=== PATIENT | female | born 1990 | race Caucasian/White ===

== ENCOUNTER 2020-01-11 11:23 | Emergency (ER) | payer BC, SELFPAY ==
--- NOTE | 2020-01-11 11:28 | XRR_ITS ---
PROCEDURE INFORMATION: Exam: XR Chest, 1 View Exam date and time: 01/11/2020 11:51 AM Age: 29 years old Clinical indication: Chest pain TECHNIQUE: Imaging protocol: XR of the chest Views: 1 view. COMPARISON: No relevant prior studies available. FINDINGS: Lungs: Unremarkable. No consolidation. Pleural space: Unremarkable. No pleural effusion. No pneumothorax. Heart/Mediastinum: Unremarkable. No cardiomegaly. Bones/joints: Unremarkable. XR/XR chest 1V portable [id number] IMPRESSION: No acute findings.
--- NOTE | 2020-01-11 11:29 | ECG_ITS ---
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 Measurements Intervals [place] Rate: 129 P: 57 OR: 139 QRS: 12 QRSD: 94 T: 47 QT: 327 QTc: 480 Interpretive Statements SINUS TACHYCARDIA INDETERMINATE AXIS ABNORMAL RHYTHM ECG No previous ECG available for comparison Electronically Signed On 01-11-2020 20:30:02 CDT by Mei Benítez M.D. [id number]
[2020-01-11 11:39] VITALS: BP 146/84; PULSE 115; RESP 16; TEMP 36.8; O2SAT 100; BMI 34.2
[2020-01-11 12:22] LABS: Basophils % 0.2 %; Eosinophils # 0.1 10^3/uL (0.0-0.8); Eosinophils % 0.6 %; Hematocrit 48.8 % (37.0-47.0); Hemoglobin 16.6 g/dL (11.5-15.3); Lymphocytes # 1.7 10^3/uL (0.8-4.8); Lymphocytes % 17.3 %; Mean Corpuscular Hemoglobin 30.6 pg (28.0-34.0); Mean Platelet Volume 9.4 fL (7.4-10.4); Monocytes # 0.6 10^3/uL (0.2-0.9); Monocytes % 6.1 %; Neutrophils # 7.37 10^3/uL (1.8-7.7); Neutrophils % 75.1 %; Nucleated Red Blood Cells % 0 %; Platelet Count 263 10^3/cmm (130-400); Red Blood Count 5.42 10^6/uL (4.1-5.3); Red Cell Distribution Width 11.8 % (12.1-15.1); White Blood Count 9.8 10^3/uL (4.0-10.0)
[2020-01-11 12:38] LABS: INR 0.94 (0.8-1.2)
[2020-01-11 12:40] LABS: HCG, Serum Qual Negative (Negative)
[2020-01-11 12:46] LABS: Alanine Aminotransferase 27 U/L (0-33); Albumin Level 4.9 g/dL (3.5-5.2); Alkaline Phosphatase 87 IU/L (35-105); Anion Gap 17.8 (5-19); Aspartate Amino Transferase 16 U/L (0-32); Blood Urea Nitrogen 11 mg/dL (6-20); Calcium 10.5 mg/dL (8.5-10.5); Carbon Dioxide 22 mmol/L (22-29); Chloride 103 mmol/L (98-107); Creatine Phosphokinase 63 U/L (26-192); Globulin 2.9 g/dL (1.3-4.6); Glucose 142 mg/dL (65-115); Lipase 18 U/L (13-60); Magnesium 2.1 mg/dL (1.7-2.3); Osmolality Calculated 290 mOsm/kg (285-295); Potassium 3.8 mmol/L (3.5-5.1); Sodium 139 mmol/L (136-145); Total Bilirubin 0.3 mg/dL (0.15-1.2); Total Protein 7.8 g/dL (6.6-8.7); Troponin(5th) Baseline 6 ng/L (0-10)
[2020-01-11 13:05] VITALS: BP 138/83; PULSE 97; RESP 18; O2SAT 97
[2020-01-11 13:07] LABS: Add Urine Microscopic? NO
[2020-01-11 13:13] LABS: Bilirubin Urine Neg (Negative); Blood Urine Neg (Negative); Glucose Urine UA Norm (Normal); Ketones Urine Negative (Negative); Leukocyte Esterase Urine Negative (Negative); Nitrate Urine Negative (Negative); Protein Urine Neg (Negative); Specific Gravity, Urine 1.005 (1.005-1.030); Urine Appearance Clear (CLEAR); Urine Color Yellow (Yellow); Urobilinogen Urine Norm (Negative); pH Urine 7 (5-7)
--- NOTE | 2020-01-11 13:15 | ED_ITS ---
HPI - Chest Pain General: Chief Complaint: Chest Pain Stated Complaint: Chest Pain Time Seen by Provider: 01/11/20 11:50 Source: patient Mode of arrival: ambulatory Limitations: no limitations History of Present Illness: MD complaint: chest heaviness Onset (ago): day(s) (1) Timing of current episode: constant Prior episodes: No Onset: during rest Pain location: other (whole chest) Pain radiation: none Severity: mild Quality: heaviness Relieving factors: nothing Exacerbating factors: stress (anxiety) Associated symptoms: Deny abdominal pain, diaphoresis, dyspnea, fever(s), leg edema, nausea, palpitations, sense of impending doom, syncope or vomiting Treatment prior to arrival: none Review of Systems General: Reports: 10 or more systems reviewed and unremarkable except in HPI and below Const: Denies: fever(s) or diaphoresis Eyes: Denies: change in vision or blurry vision ENMT: Denies: throat pain, enlarged tonsils, odynophagia, hoarseness, mouth pain or swelling of lips/tongue Card: Denies: palpitations or syncope Resp: Denies: dyspnea GI: Denies: abdominal pain, nausea or vomiting : Denies: flank pain, difficulty voiding, dysuria, urinary frequency, urinary urgency or urinary hesitancy Musc: Denies: neck pain, back pain or extremity swelling Skin/Breast: Denies: rash, pruritus or erythema Neuro: Denies: headache(s), numbness in extremities or weakness in extremities Endo: Denies: polyuria, polydipsia or tired all the time [facility] ED Female Reproductive History: Date of last menstrual period: 01/02/20 Physical Exam Const: COMMON NORMALS: no acute distress, average body habitus, patient oriented x3, no limitations, healthy appearing, alert and well nourished HENMT: COMMON NORMALS: normocephalic, atraumatic and moist oral mucous membranes HEAD & SCALP: normocephalic and atraumatic Eye: COMMON NORMALS: Equal, round and reactive pupils present, EOMs intact bilaterally, conjunctivae normal and no scleral icterus CONJUNCTIVA: Yes conjunctivae normal PUPIL: Yes Equal, round and reactive pupils present Neck/C-Spine: COMMON NORMALS: full ROM, supple, no meningeal signs, no JVD and No carotid bruits Chest: COMMONS NORMALS: normal inspection of the chest and normal palpation of entire chest wall Resp: COMMON NORMALS: normal respiratory effort, No retractions, No use of accessory muscles, clear to auscultation bilaterally and percussion normal AUSCULTATION: clear to auscultation bilaterally PERCUSSION: percussion normal Cardio: COMMON NORMALS: no JVD, regular rate, regular rhythm, S1 normal heart sound present, S2 normal heart sound present, No gallops present (Cardio), No clicks present (Cardio), No murmurs present (Cardio), No rub (Cardio) and Peripheral pulses 2+ throughout RATE: regular rate RHYTHM: regular rhythm HEART SOUNDS: S1 normal heart sound present and S2 normal heart sound present PERIPHERAL PULSES: Peripheral pulses 2+ throughout GI: COMMON NORMALS: Normal to inspection, nondistended, normoactive bowel sounds present, Soft to palpation, non-tender, No hepatosplenomegaly present, no masses and no bruits PALPATION: Yes Soft to palpation and Yes No hepatosplenomegaly present Extremity: COMMON NORMALS: normal to inspection, full ROM, capillary refill normal, no calf tenderness and no pedal edema Neuro: COMMON NORMALS: patient oriented x3 SENSORIUM/ORIENTATION: Yes alert MENINGEAL SIGNS: Yes no meningeal signs Skin: COMMON NORMALS: no rashes or lesions noted, no wounds, turgor normal, no jaundice, no petechiae and no mottling GENERAL SKIN EXAM: no rashes or lesions noted and turgor normal Course Reevaluation(s): Reevaluation #1: Discussed her lab and imaging findings with her. Negative for acute findings. Heart score is low so no need for further evaluation. Chest pain started yesterday and therefore I think his single high-sensitivity troponin that is normal is sufficient for disposition. We will discharge her home to follow-up with her primary care provider. She voiced understanding and is in agreement with the plan Time: 13:20 Vital Signs: Vital signs: Vital Signs Temperature 98.3 F 01/11/20 11:39 Pulse Rate 97 01/11/20 13:05 Respiratory Rate 18 01/11/20 13:05 Blood Pressure 138/83 01/11/20 13:05 Pulse Oximetry 97 01/11/20 13:05 MDM - Chest Pain MDM Narrative: Medical decision making narrative: Patient with chest pain as less likely to be cardiac. She has a history of anxiety and she believes that this is responsible for her symptoms. Every time she thought about it her symptoms got worse and she was unable to break the cycle. When she calmed down her symptoms resolved. Evaluation in the ED is unremarkable with negative high-sensitivity troponin. Symptoms have been ongoing for a day so it is unlikely to be ACS. Heart score is 1, she is low risk. Medical Records: Attestation: I reviewed the patient's medical records. Lab Data: Attestation: I reviewed the patient's lab results. Labs: Lab Results 01/11/20 01/11/20 01/11/20 Range/Units 12:05 12:05 12:05 WBC 9.8 (4.0-10.0) 10^3/ uL RBC 5.42 H (4.1-5.3) 10^6/u L Hgb 16.6 H (11.5-15.3) g/dL Hct 48.8 H (37.0-47.0) % MCV 90.0 (81-99) fL MCH 30.6 (28.0-34.0) pg MCHC 34.0 (30.0-36.0) g/dL RDW 11.8 L (12.1-15.1) % Plt Count 263 (130-400) 10^3/c mm MPV 9.4 (7.4-10.4) fL Neut % (Auto) 75.1 % Lymph % (Auto) 17.3 % Norman % (Auto) 6.1 % Eos % (Auto) 0.6 % Baso % (Auto) 0.2 % Neut # (Auto) 7.37 (1.8-7.7) 10^3/u L Lymph # (Auto) 1.7 (0.8-4.8) 10^3/u L [place] # (Auto) 0.6 (0.2-0.9) 10^3/u L Eos # (Auto) 0.1 (0.0-0.8) 10^3/u L Baso # (Auto) 0.0 (0.0-0.1) 10^3/u L Nucleated RBC % (a uto) 0 % Nucleated RBCs # 0.0 /100WBC PT (12.1-14.9) SECO NDS INR (0.8-1.2) Sodium 139 (136-145) mmol/L Potassium 3.8 (3.5-5.1) mmol/L Chloride 103 (98-107) mmol/L Carbon Dioxide 22 (22-29) mmol/L Anion Gap 17.8 (5-19) BUN 11 (6-20) mg/dL Creatinine 0.9 (0.5-0.9) mg/dL GFR Calculation 73.0 L (90-130) mL/min Glucose 142 H (65-115) mg/dL Calculated Osmolal ity 290 (285-295) mOsm/k g Calcium 10.5 (8.5-10.5) mg/dL Magnesium 2.1 (1.7-2.3) mg/dL Total Bilirubin 0.3 (0.15-1.2) mg/dL AST 16 (0-32) U/L ALT 27 (0-33) U/L Alkaline Phosphata se 87 (35-105) IU/L Creatine Kinase 63 (26-192) U/L Troponin T Baselin e (0-10) ng/L Total Protein 7.8 (6.6-8.7) g/dL Albumin 4.9 (3.5-5.2) g/dL Globulin 2.9 (1.3-4.6) g/dL Lipase 18 (13-60) U/L HCG, Qual Negative (Negative) Urine Color (Yellow) Urine Appearance (CLEAR) Urine pH (5-7) Ur Specific Gravit y (1.005-1.030) Urine Protein (Negative) Urine Glucose (UA) (Normal) Urine Ketones (Negative) Urine Blood (Negative) Urine Nitrate (Negative) Urine Bilirubin (Negative) Urine Urobilinogen (Negative) mg/dL Ur Leukocyte Tori ase (Negative) 01/11/20 01/11/20 01/11/20 Range/Units 12:05 12:05 12:58 WBC (4.0-10.0) 10^3/ uL RBC (4.1-5.3) 10^6/u L Hgb (11.5-15.3) g/dL Hct (37.0-47.0) % MCV (81-99) fL MCH (28.0-34.0) pg MCHC (30.0-36.0) g/dL RDW (12.1-15.1) % Plt Count (130-400) 10^3/c mm MPV (7.4-10.4) fL Neut % (Auto) % Lymph % (Auto) % [place] % (Auto) % Eos % (Auto) % Baso % (Auto) % Neut # (Auto) (1.8-7.7) 10^3/u L Lymph # (Auto) (0.8-4.8) 10^3/u L [place] # (Auto) (0.2-0.9) 10^3/u L Eos # (Auto) (0.0-0.8) 10^3/u L Baso # (Auto) (0.0-0.1) 10^3/u L Nucleated RBC % (a uto) % Nucleated RBCs # /100WBC PT 12.90 (12.1-14.9) SECO NDS INR 0.94 (0.8-1.2) Sodium (136-145) mmol/L Potassium (3.5-5.1) mmol/L Chloride (98-107) mmol/L Carbon Dioxide (22-29) mmol/L Anion Gap (5-19) BUN (6-20) mg/dL Creatinine (0.5-0.9) mg/dL GFR Calculation (90-130) mL/min Glucose (65-115) mg/dL Calculated Osmolal ity (285-295) mOsm/k g Calcium (8.5-10.5) mg/dL Magnesium (1.7-2.3) mg/dL Total Bilirubin (0.15-1.2) mg/dL AST (0-32) U/L ALT (0-33) U/L Alkaline Phosphata se (35-105) IU/L Creatine Kinase (26-192) U/L Troponin T Baselin e 6 (0-10) ng/L Total Protein (6.6-8.7) g/dL Albumin (3.5-5.2) g/dL Globulin (1.3-4.6) g/dL Lipase (13-60) U/L HCG, Qual (Negative) Urine Color Yellow (Yellow) Urine Appearance Clear (CLEAR) Urine pH 7 (5-7) Ur Specific Gravit y 1.005 (1.005-1.030) Urine Protein Neg (Negative) Urine Glucose (UA) Norm (Normal) Urine Ketones Negative (Negative) Urine Blood Neg (Negative) Urine Nitrate Negative (Negative) Urine Bilirubin Neg (Negative) Urine Urobilinogen Norm (Negative) mg/dL Ur Leukocyte Tori ase Negative (Negative) Imaging Data^: CXR: Attestation: I personally reviewed and interpreted this imaging study as follows: Radiologist's impression: [address] [address] XRay Report Signed Patient: Luz Marina Skaggs #: [id number] : 1990Acct#:[id number] Age/Sex: Date: 01/11/20 Loc: ERRoom/Bed: Attending Dr: Ordering Provider/Ordering MD: Lis Brenner DO Date of Service: 01/11/20 Procedure(s): XR chest 1V portable [id number] Accession Number(s): [id number] Report Number: [id number] PROCEDURE INFORMATION: Exam: XR Chest, 1 View Exam date and time: 01/11/2020 11:51 AM Age: 29 years old Clinical indication: Chest pain TECHNIQUE: Imaging protocol: XR of the chest Views: 1 view. COMPARISON: No relevant prior studies available. FINDINGS: Lungs: Unremarkable. No consolidation. Pleural space: Unremarkable. No pleural effusion. No pneumothorax. Heart/Mediastinum: Unremarkable. No cardiomegaly. Bones/joints: Unremarkable. XR/XR chest 1V portable [id number] IMPRESSION: No acute findings. Dictated By:Иван Vo Signed By:Russ Vo Date/Time:01/11/20 1219 DD/ 1218 EKG Data^: EKG 1: Attestation: I personally reviewed and interpreted this EKG as follows: EKG interpretation date: 01/11/20 EKG interpretation time: 11:53 Prior EKG tracings: not available for review Interpretation: Sinus tachycardia. Heart rate [address] changes. Normal axis. Discharge Plan Discharge Patient Disposition: Home Clinical Impression: Chest pain, non-cardiac Condition: Stable Discharge Orders: Discharge Order (Routine); Ordered 01/11/20 Ordered By: Shanita Holley Referrals: Junior Rutledge MD [Primary Care Provider] - 1-3 days Discharge Diet: Usual diet Discharge Activity: Resume usual activity Patient Instructions: Noncardiac Chest Pain (ED) Activity Restrictions/Additional Instructions: Return for any new or worsening symptoms. Follow-up with your primary care provider within 3 days. The probably will benefit from some medications for anxiety. Coding Level of Care Code ED Printing Press Machine Operator for Chg Fwd Exam Comprehensive
[2020-01-11 13:28] VITALS: BP 138/83; PULSE 94; RESP 18; O2SAT 98
== END 2020-01-11 13:31 | disposition home or self-care (01) ==
PROVIDERS: Emergency Medicine; Emergency Provider Family Medicine; PCP Family Medicine
DX: R07.89 Other chest pain (principal)
CPT/HCPCS: 12345; 71045; 80053; 81003; 82550; 83690; 83735; 84484; 84703; 85025; 85610; 93005; 99283

== ENCOUNTER → 2020-07-08 17:30 | Outpatient (BNVA) | payer MEDICAID, SELFPAY | PROVIDERS: PCP Family Medicine; Visit Provider Family Medicine | DX: O16.9 Unspecified maternal hypertension, unspecified trimester (principal); O99.340 Other mental disorders complicating pregnancy, unspecified trimester; I10 Essential (primary) hypertension; F41.1 Generalized anxiety disorder | CPT/HCPCS: 81025 ==

== ENCOUNTER 2020-07-24 09:51 | Outpatient (CLI) | payer BC, MEDICAID, SELFPAY ==
--- NOTE | 2020-07-24 10:11 | US_ITS ---
WS: [id number] ULTRASOUND EARLY TECHNIQUE: Transabdominal sonography of the pelvis was performed. Followed by transvaginal sonography to better evaluate the uterus and ovaries. CLINICAL INFORMATION: SUPERVISION NORMAL LMP: 06/01/2020 Beta hCG: Unknown. COMPARISON: None. FINDINGS: Cervix is long and closed. UTERUS AND GESTATIONAL SAC Intrauterine gestations: Intrauterine gestational sac. No pole or yolk sac. Small amount of subchorionic hemorrhage aylin uring 1.7 x 1.6 x 1.8 cm. Recommend short interval follow-up. Estimated gestational age: 7w0d Gestational sac measures 1.7 cm Estimated delivery March 12, 2021 Subchorionic hemorrhage: None. Uterus measures 11.1 x 5.1 x 6.4 cm Anterior uterine fibroid measuring 1.0 x 1.1 x 0.8 cm. Normal adnexa. Corpus luteum cyst right ovary. Normal left ovary. FREE FLUID None. US/US OB <=14 wk fetus w transvag IMPRESSION: 1. Intrauterine gestational sac. No pole or yolk sac. 2. Small amount of subchorionic hemorrhage measuring 1.7 x 1.6 x 1.8 cm. Recom mend short interval follow-up. 3. Estimated gestational age; 7w0d
== END 2020-07-24 09:52 | disposition home or self-care (01) ==
PROVIDERS: PCP Family Medicine; Visit Provider Family Medicine
DX: Z34.91 Encounter for supervision of normal pregnancy, unspecified, first trimester (principal); Z3A.01 Less than 8 weeks gestation of pregnancy
CPT/HCPCS: 76801; 76817

== ENCOUNTER 2020-08-06 07:36 | Outpatient (CLI) | payer BC, MEDICAID, SELFPAY ==
--- NOTE | 2020-08-06 07:56 | US_ITS ---
WS: [id number] ULTRASOUND EARLY TECHNIQUE: Transabdominal sonography of the pelvis was performed. Followed by transvaginal sonography to better evaluate the uterus and ovaries. CLINICAL INFORMATION: YOLK SAC ABSENT LMP: 06/01/2020 Beta hCG: Unknown. COMPARISON: July 2020 FINDINGS: UTERUS AND GESTATIONAL SAC Intrauterine gestations: Fibroid uterus. Cervix long and closed. Irregular intrauterine gestational sac. No yolk sac or pole. No free fluid. Estimated gestational age: 7w6d Subchorionic hemorrhage: Small subchorionic hemorrhage. Subchorionic hemorrhage measures 2.0 x 2.6 x 1.6 cm OVARIES Right ovary: Corpus luteum cyst. Left ovary: Normal. FREE FLUID None. US/US OB transvaginal [id number] IMPRESSION: 1. Irregular intrauterine gestational sac. No yolk sac or pole. Recommen d continued follow-up to assess viability. 2. Small subchorionic hemorrhage. Recommend short interval follow-up. 3. No adnexal masses. 4. No free fluid. 5. Estimated gestational age; 7w6d
== END 2020-08-06 07:37 | disposition home or self-care (01) ==
LOC: RAD 07:37
PROVIDERS: PCP Family Medicine; Visit Provider Family Medicine
DX: O02.89 Other abnormal products of conception (principal); O46.91 Antepartum hemorrhage, unspecified, first trimester; Z3A.01 Less than 8 weeks gestation of pregnancy
CPT/HCPCS: 76817

== ENCOUNTER 2020-08-25 15:32 | Outpatient (CLI) | payer BC, MEDICAID, SELFPAY ==
--- NOTE | 2020-08-25 | US_ITS ---
WS: [id number] Obstetrical ultrasound, limited. COMPARISON: 08/06/2020. HISTORY: Vaginal bleeding. History of . Transvaginal imaging is submitted. There is a small amount of fluid consistent with irregular gestati onal sac along the endometrium. This is an elongated collection but no pole or cardiac activity . No yolk sac. Cervix is closed. No adnexal masses. No free fluid. Ovaries are normal size. US/US OB transvaginal [id number] IMPRESSION: 1. Findings are most consistent with an embryonic . 2. Abnormal fluid collection along the endometrial canal is probably an abnorma l gestational sac. No pole or cardiac activity. Findings consistent with anembryonic gestation.
== END 2020-08-25 15:33 | disposition home or self-care (01) ==
LOC: RAD 15:37
PROVIDERS: PCP Family Medicine; Visit Provider Family Medicine
DX: O02.89 Other abnormal products of conception (principal); N93.9 Abnormal uterine and vaginal bleeding, unspecified
CPT/HCPCS: 76817

== ENCOUNTER 2020-09-03 21:10 | Emergency (ER) | payer BC, MEDICAID, SELFPAY ==
[2020-09-03 21:13] VITALS: BP 159/100; PULSE 120; RESP 17; TEMP 37.1; O2SAT 99; BMI 36.0
--- NOTE | 2020-09-03 21:21 | W.ED.FEMALGU ---
HPI - Female Genitourinary General: Chief complaint: Vaginal Bleeding Stated complaint: had miscarriage badly bleeding Time Seen by Provider: 09/03/20 21:13 Source: patient Mode of arrival: ambulatory Limitations: no limitations History of Present Illness: HPI Narrative: 30-year-old female who states that she started having vaginal bleeding about a week ago. She states she had an ultrasound on the seventh that showed a blighted ovum and she knows that she was going to miscarry. She states that today her bleeding is gotten heavier and she is passing some clots. She denies any lightheadedness. She denies any abdominal pain. She denies any worsening improving factors. Associated symptoms: Reports vaginal bleeding; Deny abdominal pain, headache(s) or nausea Date of Last Menstrual Period: 01/02/20 Review of Systems Const: Denies: fever(s), chills, body aches or change in appetite Eyes: Denies: blurry vision or eye discomfort ENMT: Denies: throat pain or dental pain Card: Denies: chest pain Resp: Denies: dyspnea GI: Denies: abdominal pain, nausea, vomiting or diarrhea : Reports: vaginal bleeding Musc: Denies: neck pain or back pain Skin/Breast: Denies: rash Neuro: Denies: headache(s) Psych: Denies: depression Reginald/Lymph: Denies: easy bruising All/Imm: Denies: urticaria PFSH ED PFSH: Medical History (Updated 09/03/20 @ 23:29 by Elissa Winn MD) ROSEANNE (generalized anxiety disorder) Hypertension Family History (Updated 08/04/20 @ 13:07 by Ladonna Díaz) Grandmother Diabetes Maternal Heart disease Maternal Hypercholesteremia Maternal Hypertension Materanl Denies family history of Colon cancer Ovarian cancer Breast cancer Uterine cancer Thyroid disease Stroke Social History (Updated 08/04/20 @ 13:08 by Ladonna Díaz) Alcohol intake: former Female Reproductive History: Date of last menstrual period: 01/02/20 Spontaneous abortions: No Physical Exam Const: COMMON NORMALS: no acute distress, patient oriented x3 and healthy appearing HENMT: COMMON NORMALS: normocephalic and atraumatic HEAD & SCALP: normocephalic and atraumatic Eye: COMMON NORMALS: Equal, round and reactive pupils present and EOMs intact bilaterally PUPIL: Yes Equal, round and reactive pupils present Neck/C-Spine: COMMON NORMALS: full ROM and supple Chest: COMMONS NORMALS: normal inspection of the chest and normal palpation of entire chest wall Resp: COMMON NORMALS: normal respiratory effort, No retractions, No use of accessory muscles and clear to auscultation bilaterally AUSCULTATION: clear to auscultation bilaterally Cardio: COMMON NORMALS: regular rate, regular rhythm and No murmurs present (Cardio) RATE: regular rate RHYTHM: regular rhythm GI: COMMON NORMALS: Normal to inspection, nondistended, normoactive bowel sounds present, Soft to palpation, non-tender and no masses PALPATION: Yes Soft to palpation : SPECULUM EXAM - VAGINA: Yes vaginal bleeding SPECULUM EXAM - CERVIX: Yes Cervical os open and Yes Cervical bleeding OB/EXTERNAL & SPECULUM: Cervical os open and vaginal bleeding Extremity: COMMON NORMALS: normal to inspection and full ROM Neuro: COMMON NORMALS: patient oriented x3, moves all extremities and no focal motor deficits Psych: COMMON NORMALS: mental status grossly normal, Normal thought process present and cooperative THOUGHT PROCESS: Normal thought process present Skin: COMMON NORMALS: no rashes or lesions noted and no wounds GENERAL SKIN EXAM: no rashes or lesions noted Course Vital Signs: Vital signs: Vital Signs Temperature 98.7 F 09/03/20 21:13 Pulse Rate 120 H 09/03/20 21:13 Respiratory Rate 17 09/03/20 21:13 Blood Pressure 159/100 09/03/20 21:13 Pulse Oximetry 99 09/03/20 21:13 MDM - Female MDM Narrative: Medical decision making narrative: Patient presents with likely completed . Bedside ultrasound here was unable to see gestational sac. I did clear some clot from her cervix. Patient's blood type is positive and she is stable for discharge. She is to follow-up with Dr. Rutledge and return if worsening. Lab Data: Labs: Lab Results 09/03/20 09/03/20 09/03/20 Range/Units 21:40 21:40 21:40 WBC 10.8 H (4.0-10.0) 10^3/ uL RBC 4.79 (4.1-5.3) 10^6/u L Hgb 14.3 (11.5-15.3) g/dL Hct 41.9 (37.0-47.0) % MCV 87.5 (81-99) fL MCH 29.9 (28.0-34.0) pg MCHC 34.1 (30.0-36.0) g/dL RDW 12.3 (12.1-15.1) % Plt Count 185 (130-400) 10^3/c mm MPV 9.6 (7.4-10.4) fL Neut % (Auto) 73.9 % Lymph % (Auto) 15.6 % [place] % (Auto) 6.7 % Eos % (Auto) 1.7 % Baso % (Auto) 0.3 % Neut # (Auto) 7.95 H (1.8-7.7) 10^3/u L Lymph # (Auto) 1.7 (0.8-4.8) 10^3/u L [place] # (Auto) 0.7 (0.2-0.9) 10^3/u L Eos # (Auto) 0.2 (0.0-0.8) 10^3/u L Baso # (Auto) 0.0 (0.0-0.1) 10^3/u L Nucleated RBC % (a uto) 0 % Nucleated RBCs # 0.0 /100WBC Ser , Tressa i-Qnt 1537.00 mIU/mL Blood Type A Positive Rho(D) Type Positive / 4+ Antibody Screen Negative Discharge Plan Discharge Patient Disposition: Home Clinical Impression: Threatened Condition: Stable Prescriptions: No Action prenat.vits,jo ann,ocy-bbuz-ejlmn Tablet 1 tab PO DAILY RF: 0 Afrin (oxymetazoline) 0.05 % mist 2 spray intranasal Q12H PRNRF: 0 cetirizine [Zyrtec] 10 mg tablet 10 mg PO DAILY RF: 0 progesterone micronized 4 % gel vaginal RF: 0 Discharge Orders: Discharge ED (Routine); Ordered 09/03/20 Ordered By: Elissa Winn Referrals: Junior Rutledge MD [Primary Care Provider] - Discharge Diet: Advance as tolerated Discharge Activity: Resume usual activity Patient Instructions: Threatened Miscarriage (ED) Coding Level of Care Code ED Advertising Copywriter for Chg Fwd Exam Comprehensive
[2020-09-03 21:57] LABS: Basophils % 0.3 %; Eosinophils # 0.2 10^3/uL (0.0-0.8); Eosinophils % 1.7 %; Hematocrit 41.9 % (37.0-47.0); Hemoglobin 14.3 g/dL (11.5-15.3); Lymphocytes # 1.7 10^3/uL (0.8-4.8); Lymphocytes % 15.6 %; Mean Corpuscular HGB Conc 34.1 g/dL (30.0-36.0); Mean Corpuscular Hemoglobin 29.9 pg (28.0-34.0); Mean Corpuscular Volume 87.5 fL (81-99); Mean Platelet Volume 9.6 fL (7.4-10.4); Monocytes # 0.7 10^3/uL (0.2-0.9); Monocytes % 6.7 %; Neutrophils # 7.95 10^3/uL (1.8-7.7); Neutrophils % 73.9 %; Nucleated Red Blood Cells % 0 %; Platelet Count 185 10^3/cmm (130-400); Red Blood Count 4.79 10^6/uL (4.1-5.3); Red Cell Distribution Width 12.3 % (12.1-15.1); White Blood Count 10.8 10^3/uL (4.0-10.0)
[2020-09-03] MEDS: miSOPROStol 100 mcg tablet 600 MCG PO (22:22)
[2020-09-03] MEDS: sodium chloride 0.9% 1,000 ML 999 ML IV (22:22)
[2020-09-03 23:42] VITALS: BP 141/87; PULSE 67; RESP 15; TEMP 37.1; O2SAT 98
== END 2020-09-03 23:45 | disposition home or self-care (01) ==
PROVIDERS: Emergency Provider Emergency Medicine; PCP Family Medicine
DX: O20.0 Threatened abortion (principal); Z3A.00 Weeks of gestation of pregnancy not specified; O16.9 Unspecified maternal hypertension, unspecified trimester
CPT/HCPCS: 84702; 85025; 86850; 86900; 96360; 99283; J7030

== ENCOUNTER 2020-10-06 11:12 | Outpatient (CLI) | payer BC, MEDICAID, SELFPAY ==
--- NOTE | 2020-10-06 11:21 | XRR_ITS ---
PROCEDURE INFORMATION: Exam: XR Left Foot Exam date and time: 10/06/2020 11:21 AM Age: 30 years old Clinical indication: Pain; Foot; Left; Patient HX: Playing bucket pong and collided with 10/04/20; Additional info: Left foot pain TECHNIQUE: Imaging protocol: XR Left foot. Views: 3 or more views. COMPARISON: No relevant prior studies available. FINDINGS: Bones/joints: There is a small plantar calcaneal spur. No fracture, dislocation or other acute abnormalities are seen. There are no significant degenerative changes. Soft tissues: Normal. XR/XR foot LT min 3V* [id number] IMPRESSION: No acute abnormality.
== END 2020-10-06 11:13 | disposition home or self-care (01) ==
PROVIDERS: PCP Family Medicine; Visit Provider Family Medicine
DX: M79.672 Pain in left foot (principal)
CPT/HCPCS: 73630

== ENCOUNTER 2020-12-27 09:07 | Outpatient (CLI) | payer OTHER, MEDICAID, SELFPAY ==
--- NOTE | 2020-12-27 | USR_ITS ---
PROCEDURE INFORMATION: Exam: US Duplex Artery and Vein of the Abdominal and/or Reproductive Organs. Complete Ovaries Exam date and time: 12/27/2020 9:15 AM Age: 30 years old Clinical indication: Screening exam; Routine US, uterus; Additional info: Dating TECHNIQUE: Imaging protocol: Real-time duplex ultrasound scan of the arterial and venous flow with color Doppler flow and spectral waveform analysis with image documentation. Complete duplex exam focused on the ovaries. Duplex exam was added to evaluate for torsion and other vascular conditions. Total images: 149 COMPARISON: US OB transvaginal [id number] 08/25/2020 3:56 PM FINDINGS: Right adnexa: Normal arterial and venous waveforms noted in the right ovary. Normal color Doppler demonstrated within the right ovary. Left adnexa: Normal arterial and venous waveforms demonstrated in the left ovary. Normal color Doppler demonstrated within the left ovary. IMPRESSION: Normal vascularity of bilateral ovaries. PROCEDURE INFORMATION: Exam: US First Trimester, Transabdominal and US , Transvaginal Exam date and time: 12/27/2020 9:15 AM Age: 30 years old Clinical indication: Screening exam; Routine US, uterus; Additional info: Dating TECHNIQUE: Imaging protocol: Real-time transabdominal obstetrical ultrasound of the maternal pelvis and a first trimester , less than 14 weeks 0 days, with image documentation. Transvaginal imaging was used for better evaluation of the fetus, adnexa, and/or cervix. COMPARISON: US OB transvaginal [id number] 08/25/2020 3:56 PM FINDINGS: Gestation: Intrauterine with gestational sac with yolk sac and fetus visualized. Two additional fluid collections within the endometrium seen felt to represent gestational sacs but without yolk sacs nor fetus visualized. Embryonic/ heart rate: Positive heart rate of 136 bpm. Extra-embryonic membranes/Placenta: Unremarkable. No subchorionic bleed. Amniotic fluid: Amniotic fluid/chorionic fluid is normal for gestational age. BIOMETRY: Gestational age (AUA): [place]-rump length of 1.15 cm corresponding to a 7 week 2 day gestational age. MATERNAL: Uterus: Unremarkable. Cervix: There are incidental benign cervical Nabothian cysts. Right adnexa: Right ovary measures 5.0 x 3.9 x 2.5 cm giving a volume of 26 mL. Cystic mass in right ovary has septation and may represent a hemorrhagic cyst. This measures 2 cm in greatest diameter. Normal vascularity and waveforms demonstrated. Left adnexa: Left ovary measures 3.4 x 2.2 x 2.4 cm giving a volume of 9.5 mL. The left ovary appears unremarkable. Normal vascularity and waveforms demonstrated. Intraperitoneal space: No intraperitoneal free fluid. US/US OB <=14 wk fetus w transvag IMPRESSION: 1. Three fluid collections seen within the endometrium felt to represent gestational sacs. One of the sacs has yolk sac and fetus visualized. The other 2 show no internal structures. 2. IUP with positive heart rate of 136 bpm and estimated gestational age of 7 weeks 2 days. 3. Septated right ovarian cyst may represent a hemorrhagic cyst. Normal vascularity demonstrated within both ovaries. Radiation Dose CTDIVOL = (mGy): DLP = (mGy-cm)
== END 2020-12-27 09:08 | disposition home or self-care (01) ==
LOC: RAD 09:13
PROVIDERS: PCP Family Medicine; Visit Provider Family Medicine
DX: Z34.91 Encounter for supervision of normal pregnancy, unspecified, first trimester (principal); Z3A.01 Less than 8 weeks gestation of pregnancy
CPT/HCPCS: 76801; 76817

== ENCOUNTER 2021-01-14 15:31 | Outpatient (CLI) | payer OTHER, MEDICAID, SELFPAY ==
--- NOTE | 2021-01-14 15:48 | US_ITS ---
WS: [id number] EARLY OBSTETRICAL ULTRASOUND (<14 WEEKS). HISTORY: FOLLOW UP COMPARISON: 12/27/2020 3 sacs are identified within the endometrium. Similar to the prior examination. Within one of the ges tational sacs there is a pole with a crown-rump length of 3.4 cm corresponding to a gestation o f 10 weeks and 2 days. Normal cardiac activity at 164 bpm. The remaining gestational sacs contain a s mall amount of low level echoes but no pole or yolk sac. No free fluid. Neither ovary is identified. US/US OB <=14 wk fetus w transvag IMPRESSION: 1. Again noted on today's examination are 3 intrauterine gestational sacs. Onl y one of these sacs contains a crown-rump length and cardiac activity. Th e remaining 2 sacs are empty. 2. Single intrauterine gestation of 10 weeks 2 days with an EDC of 08/10/2021. Appropriate growth since the prior ultrasound.
== END 2021-01-14 15:32 | disposition home or self-care (01) ==
LOC: RAD 15:36
PROVIDERS: PCP Family Medicine; Visit Provider Family Medicine
DX: Z34.81 Encounter for supervision of other normal pregnancy, first trimester; Z3A.10 10 weeks gestation of pregnancy
CPT/HCPCS: 76801; 76817

== ENCOUNTER → 2021-04-02 16:42 | Outpatient (BNVA) | payer OTHER, MEDICAID, SELFPAY | PROVIDERS: PCP Family Medicine; Visit Provider Emergency Medicine | DX: Z20.822 Contact with and (suspected) exposure to COVID-19 (principal) | CPT/HCPCS: 87635 ==

== ENCOUNTER 2021-04-10 08:56 | Outpatient (CLI) | payer OTHER, MEDICAID, SELFPAY ==
[2021-04-10 09:12] VITALS: BP 147/86; PULSE 122; PULSE 90; RESP 16; TEMP 36.7; O2SAT 97; O2SAT 98; BMI 38.0
[2021-04-10 10:00] VITALS: BP 125/76; PULSE 103; RESP 16; TEMP 36.5; O2SAT 97
[2021-04-10] MEDS: ondansetron 2 mg/ML SDV 2 mL 4 MG IVP (13:31)
== END 2021-04-10 11:05 | disposition home or self-care (01) ==
LOC: OPS 08:58
PROVIDERS: PCP Family Medicine; Visit Provider Family Medicine
DX: U07.1 COVID-19 (principal)
CPT/HCPCS: 96365; 96375; J2405

== ENCOUNTER → 2021-06-30 18:05 | Outpatient (BNVA) | payer OTHER, MEDICAID, SELFPAY | PROVIDERS: PCP Family Medicine; Visit Provider Emergency Medicine | DX: R68.89 Other general symptoms and signs (principal); J11.1 Influenza due to unidentified influenza virus with other respiratory manifestations | CPT/HCPCS: 87400 ==

== ENCOUNTER 2021-07-13 07:25 | Outpatient (CLI) | payer OTHER, MEDICAID, SELFPAY ==
--- NOTE | 2021-07-13 07:36 | US_ITS ---
WS: [id number] BIOPHYSICAL PROFILE AMNIOTIC FLUID HISTORY: SUPERVISION OF NORMAL , multiparous COMPARISON: 01/14/2021 Cardiac activity: 147 bpm. Cervix: Closed, 4.3 cm in length. Placenta: Anterior, no previa or abruption. Placenta grade: 1 Parameters are as follows: Breathin Movement: 2 Tone: 2 Fluid volume: 2 Indication fluid index: 10.4 cm which is between the fifth and 50th percentiles. The largest vertical pocket of amniotic fluid is 4.2 cm. US/US OB F/U w BPP wo NST IMPRESSION: 1. Biophysical profile score: 8/8. 2. Low normal amniotic fluid index.
== END 2021-07-13 07:26 | disposition home or self-care (01) ==
LOC: RAD 07:27
PROVIDERS: PCP Family Medicine; Visit Provider Family Medicine
DX: Z34.80 Encounter for supervision of other normal pregnancy, unspecified trimester (principal)
CPT/HCPCS: 76816; 76819

== ENCOUNTER 2021-07-17 14:06 | Outpatient (CLI) | payer MEDICAID, SELFPAY | END 2021-07-17 14:07 | disposition home or self-care (01) | LOC: LAB 14:11 | PROVIDERS: PCP Family Medicine; Visit Provider Family Medicine | DX: Z34.80 Encounter for supervision of other normal pregnancy, unspecified trimester (principal) | CPT/HCPCS: 87081 ==

== ENCOUNTER → 2021-07-24 09:37 | Outpatient (BNVA) | payer MEDICAID, SELFPAY | PROVIDERS: PCP Family Medicine; Visit Provider Family Medicine | DX: Z34.80 Encounter for supervision of other normal pregnancy, unspecified trimester (principal) | CPT/HCPCS: 87081 ==

== ENCOUNTER → 2021-07-31 11:18 | Outpatient (BNVA) | payer MEDICAID, SELFPAY | PROVIDERS: PCP Family Medicine; Visit Provider Family Medicine | DX: Z34.80 Encounter for supervision of other normal pregnancy, unspecified trimester (principal); R03.0 Elevated blood-pressure reading, without diagnosis of hypertension | CPT/HCPCS: 80053; 84550; 85025 ==

== ENCOUNTER 2021-08-02 11:34 | Outpatient (CLI) | payer MEDICAID, SELFPAY ==
[2021-08-02 12:18] LABS: Total Volume, Urine 2250 mL; Urine Total Protein 9.6 mg/dL (0-150)
== END 2021-08-02 11:35 | disposition home or self-care (01) ==
PROVIDERS: PCP Family Medicine; Visit Provider Family Medicine
DX: Z34.80 Encounter for supervision of other normal pregnancy, unspecified trimester (principal); R03.0 Elevated blood-pressure reading, without diagnosis of hypertension
CPT/HCPCS: 84156

== ENCOUNTER 2021-08-03 08:10 | Inpatient (IN) | payer MEDICAID, SELFPAY ==
[2021-08-03] VITALS (73 sets, daily range): BP systolic 108–179; BP diastolic 58–96; PULSE 79–131; RESP 16–18; TEMP 36.7–36.9; O2SAT 97–100; BMI 40.6
[2021-08-03 09:56] LABS: Basophils % 0.2 %; Eosinophils # 0.1 10^3/uL (0.0-0.8); Eosinophils % 0.6 %; Hematocrit 40.4 % (37.0-47.0); Hemoglobin 13.4 g/dL (11.5-15.3); Lymphocytes # 1.5 10^3/uL (0.8-4.8); Mean Corpuscular HGB Conc 33.2 g/dL (30.0-36.0); Mean Corpuscular Hemoglobin 27.9 pg (28.0-34.0); Mean Corpuscular Volume 84.2 fl (81-99); Mean Platelet Volume 9.9 fL (7.4-10.4); Monocytes # 0.9 10^3/uL (0.2-0.9); Monocytes % 7.4 %; Neutrophils # 9.62 10^3/uL (1.8-7.7); Neutrophils % 78.6 %; Nucleated Red Blood Cells % 0 %; Platelet Count 225 10^3/cmm (130-400); Red Cell Distribution Width 15.3 % (12.1-15.1); White Blood Count 12.3 10^3/uL (4.0-10.0)
--- NOTE | 2021-08-03 10:24 | P.HP_ITS ---
Providers/Chief Complaint Primary Care Provider: Junior Rutledge MD Chief Complaint: contractions History of Present Illness Luz Marina Skaggs is a 31 year old at 39.0 weeks gestation by LMP consistent with 7-week ultrasound. Her is complicated by chronic hypertension, smoker, anxiety, obesity, possible triplet with only 1 viable fetus, COVID-19 infection on 04/01/2021. The patient presented to labor and delivery triage due to contractions that started at approximately 4 AM. She had a feeling of loss of fluid around the same time. For this reason she came to labor and delivery for further evaluatio n. She was found to be 6 to 7 cm dilated and nitrazine was positive. For this reason she was kept for spontaneous labor with spontaneous rupture of membranes. The patient denies any headaches, flashes of light, nausea, vomiting, vaginal bleeding, chest pains, fever, cough. Medications/Allergies Home Medications Medication Instructions Recorded Confirmed Last Taken Type cetirizine 10 mg tablet (Zyrtec) 10 mg PO DAILY 07/08/20 06/30/21 Unknown History oxymetazoline 0.05 % nasal mist 2 spray INTRANASAL Q12H PRN 07/08/20 06/30/21 Unknown History (Afrin (oxymetazoline)) prenat.vits,jo ann,[id number] 1 tab PO DAILY 07/08/20 06/30/21 Unknown History pediatric multivitamin no.19-folic tab PO 04/02/21 06/30/21 Unknown History acid 200 mcg chewable tablet (Children's Multi-Vitamin Gummies) oseltamivir 75 mg capsule (Tamiflu) 75 mg PO BID 5 Days #10 cap 06/30/21 06/30/21 Unknown Rx Allergies Allergy/AdvReac Type Severity Reaction Status Date / Time No Known Allergies Allergy Verified 06/30/21 17:46 PFSH Acute 2 PFSH: Medical History ROSEANNE (generalized anxiety disorder) Hypertension No pertinent past medical history neghx: htn,dm,thyroid,dvt/pe Surgical History Hx of wisdom tooth extraction (~2004) Family History Grandmother Diabetes Maternal Heart disease Maternal Hypercholesteremia Maternal Hypertension Materanl Denies family history of Colon cancer Ovarian cancer Breast cancer Uterine cancer Thyroid disease Stroke Social History Smoking and tobacco status: current every day smoker Alcohol intake: former Female Reproductive History: Date of last menstrual period: 01/02/20 : 4 Spontaneous abortions: No Vitals/I&O/Wt Last Vital Signs Pulse 93 08/03/21 09:58 Resp 18 08/03/21 09:48 BP 153/79 08/03/21 09:58 Weight last 48 hrs Weight 267 lb Physical Exam 2 Narrative: General: Alert and oriented x3 Eyes: Pupils equal round and reactive to light and accommodation Mouth: Mucous membranes moist, pharynx non-erythematous Cardiac: Regular rate and rhythm without murmurs Lungs: Clear to auscultation bilaterally without wheezes, crackles or rhonchi Abdomen: Soft, non-tender, fundus consistent with gestational age Extremities: +1 pitting edema in the bilateral lower extremities Data : 08/03/21 09:23 A&P Assessment and plan (1) Intrauterine : Status: Acute (2) Spontaneous rupture of membranes: Status: Acute Plan The patient is in spontaneous labor. She had spontaneous rupture membranes. We will plan to proceed with routine intrapartum management. She is GBS negative. heart tones are in the mid 130s with moderate variability good accelerations. Category 1 tracing. All questions were answered. Attestations Medical Necessity Statement*: The patient will be here for greater than 2 midnights due to routine intrapartum and management of labor and delivery. Coding Level of Care Code Acute Lokie Engineer for Aleah Garcia Diagnoses Intrauterine Z34.90 Spontaneous rupture of membranes
[2021-08-03] MEDS: lactated ringers 1,000 ML 999 ML IV (16:20)
--- NOTE | 2021-08-03 17:10 | P.ANESUD_ITS ---
Pre-Anesthetic Update Pre-Anesthetic Assessment: Date of Surgery/Procedure: 08/03/21 Preop Leora gnosis: IUP Proposed Procedure: epidural Changes from Pre-Anesthetic Assessment: none Last Intake: 629 Labs Last 48hrs: Short CBC 08/03/21 Range/Units 09:23 WBC 12.3 H (4.0-10.0) 10^3/ uL Hgb 13.4 (11.5-15.3) g/dL Hct 40.4 (37.0-47.0) % MCV 84.2 (81-99) fl Plt Count 225 (130-400) 10^3/c mm Neut % (Auto) 78.6 % Neut # (Auto) 9.62 H (1.8-7.7) 10^3/u L Vitals: Temperature 98.1 F 08/03/21 13:32 Pulse Rate 97 08/03/21 17:30 Pulse Rhythm 08/03/21 09:15 Pulse Strength 3+ Normal 08/03/21 09:15 Respiratory Rate 18 08/03/21 09:48 Respiratory Effort Non-Labored 08/03/21 09:15 Respiratory Depth Normal 08/03/21 09:15 Respiratory Patter n 08/03/21 09:15 Blood Pressure 152/84 08/03/21 17:26 Pulse Oximetry 97 08/03/21 17:30 Oxygen Delivery Me thod 08/03/21 09:15 Cardiac Studies: No Data to Display
[2021-08-03] MEDS: dextrose 5%-lactated ringers 1,000 ML 125 ML IV (17:20)
--- NOTE | 2021-08-03 17:36 | ANES.PROC ---
Anesthesia Procedures Procedure/Date: 08/03/21 epidural Epidural: Time Out Performed: Yes Consents Signed: Procedure Consent Consent: from patient, risks and benefits reviewed and patient agrees to proceed Lumbar Level: L3-L4 Epidural position: sitting Epidural procedure: sterile prep of area, 1% lidocaine to numb the area, 18 g needle, negative for paresthesia passed, test dose given, 1.5% xylocaine 1:200k epi, placed PCEA, no systemic response, sterile dressing applied, L.U.D. no apparent complications and 0.2% Ropiavacaine @ mls/hr (13) Additional Comments: first attempt + blood return in catheter. catheter removed. second attempt negative CSF return, negative blood return. MARILYN at 5.5. taped at 12 at skin
--- NOTE | 2021-08-03 18:48 | PM.MISC ---
Miscellaneous Note Note: The patient was making slow progress throughout the day and it was felt that the 's head was in the OP position. Multiple position changes have been tried to try and get the infant to change position. She progressed to 8 cm dilation. We discussed getting an epidural versus getting a due to this. We decided to try an epidural to see if this could help her relax and allow the to rotate. Epidural was placed and she is now complete and -1 station. We will try pushing and if she is not delivered within 2 hours of pushing, will plan for a primary low transverse section. The patient is in agreement with the current plan of care. All questions were answered.
[2021-08-03] MEDS: lidocaine 2% INJ 20 mL INJECTION (19:30)
--- NOTE | 2021-08-03 19:57 | P.PCNOB_ITS ---
Delivery Note: Date of delivery: August 03, 2021 Pre-delivery diagnoses: 1. Intrauterine at 39.0 weeks gestation 2. Chronic hypertension 3. Smoker 4. Anxiety 5. Obesity 6. Possible triplet with only 1 viable fetus 7. COVID-19 infection on 04/01/2021 Post-delivery diagnoses: 1. Intrauterine status post spontaneous vaginal delivery at 39.0 weeks gestation 2. Chronic hypertension 3. Smoker 4. Anxiety 5. Obesity 6. Possible triplet with only 1 viable fetus 7. COVID-19 infection on 04/01/2021 8. Delivery of healthy infant male weighing 8 pounds 9 ounces with Apgars of 9 and 9 Procedure: Spontaneous vaginal delivery Delivering Physician: Junior Rutledge MD Estimated blood loss (mL): 150 Findings: 1. Delivery of healthy male weighing 8 pounds 9 ounces with Apgars of 9 and 9 2. Intact placenta with central umbilical cord insertion site without other abnormalities noted. Pre-Delivery Course: Luz Marina Skaggs is a 31 year old G4 now P2 status post spontaneous vaginal delivery at 39.0 weeks gestation by LMP consistent with 7-week ultrasound.? Her was complicated by chronic hypertension, smoker, anxiety, obesity, possible triplet with only 1 viable fetus, COVID-19 infection on 04/01/2021. The patient presented to labor and delivery triage due to contractions that started at approximately 4 AM.? She had a feeling of loss of fluid around the same time.? For this reason she came to labor and delivery for further evaluation.? She was found to be 6 to 7 cm dilated and nitrazine was positive.? For this reason she was kept for spontaneous labor with spontaneous rupture of membranes. The patient made slow change from there and was gilbert regularly every 3 to 4 minutes. The patient requested not to have an epidural and so Pitocin was not added initially. With continued checks it was felt that the infant was in the OP position. Multiple position changes were done to try and get the infant to flip into the OA position, however were unsuccessful. There was a fore bag present and this was ruptured to allow further descent. Without further change, the patient consented to an epidural to see if this would allow her to relax and the infant to change position. The epidural was placed in the late afternoon and the patient was comfortable with it. Shortly afterwards she began to make change to 8 cm and finally to complete at 1840 on 08/03/2021. Delivery: The patient began pushing at 1855 on 08/03/2021. She pushed well and the delivered in the OA position at 1920 on 08/03/2021. The right shoulder was the anterior shoulder and it delivered with gentle downward pressure. The rest of the infant delivered without complications. The was crying immediately upon delivery. Infant's mouth and nose were bulb suctioned by myself. The infant was placed on the mother's chest where the nurses were waiting to care for him. Cord was clamped by myself and the infant's father cut the cord. Cord blood was obtained and the cord was then drained of blood. Traction was placed on the umbilical cord and uterine massage was carried out. The placenta delivered without complication at 1925 on 08/03/2021. The placenta was noted to be intact with a central umbilical cord insertion site. No abnormalities were appreciated. The cervix was inspected and no tears were noted. The vaginal wall was inspected and a small second- degree midline perineal laceration was noted. This appeared to be over old scar tissue. Lidocaine was placed for anesthesia. 3-0 Vicryl was used to repair the laceration in a running fashion. The patient tolerated this well. A rectal exam was done and no sutures were noted in the rectal vault. Currently both the mother and are doing well. History History History 3 Term 2 Miscarriages/Ectopic 1 0 Living Children 2 A&P Assessment and plan (1) Spontaneous vaginal delivery: Status: Acute Plan Patient is doing well at this time. We will proceed with routine management of spontaneous vaginal delivery. She request to have a tubal done. We will contact the DOCUMENT IMAGING SPECIALIST on-call for further evaluation. Coding Level of Care Code Acute Executive Receptionist for Chg Fwd Diagnoses Spontaneous vaginal delivery O80
[2021-08-03] MEDS: ibuprofen 800 mg tablet PO (22:12)
[2021-08-04 01:30] VITALS: BP 124/73; PULSE 101; RESP 16; TEMP 36.5; O2SAT 97
[2021-08-04 03:31] VITALS: BP 131/80; PULSE 78; RESP 16; TEMP 36.7; O2SAT 98
[2021-08-04] MEDS: acetaminophen 325 mg Tablet 650 MG PO (04:38)
[2021-08-04 06:30] VITALS: BP 113/71; PULSE 85; RESP 15; TEMP 36.6; TEMP 36.7; O2SAT 95
--- NOTE | 2021-08-04 08:15 | P.PN_ITS ---
Subjective Subjective: The patient is feeling well today. She is ambulating, voiding, passing gas and tolerating food by mouth. She is having some pain from the epidural site and with cramping, however it is well controlled with medications. She is not having any headaches at this time. Vitals/I&O/Wt Last Vital Signs Temp 98.0 F 08/04/21 06:30 Pulse 85 08/04/21 06:30 Resp 15 08/04/21 06:30 BP 113/71 08/04/21 06:30 Pulse Ox 95 08/04/21 06:30 08/03/21 08/04/21 08/04/21 22:59 06:59 14:59 Intake Total 38.9 / 38.9 1999 / 2037.9 Output Total 400 / 400 1599 / 1999 Balance -361.1 / -361.1 400 / 38.9 Weight last 48 hrs Weight 267 lb Physical Exam Narrative: General: Alert and oriented x3 Cardiac: Regular rate and rhythm without murmurs Lungs: Clear to auscultation bilaterally without wheezes, crackles or rhonchi Abdomen: Soft, mild tenderness over uterus. The uterus is firm and 2 cm below the umbilicus. Extremities: +1 pitting edema in the bilateral lower extremities Data : 08/03/21 09:23 A&P Assessment and plan (1) Spontaneous vaginal delivery: Status: Acute Plan The patient is doing well and showing no signs of complications. We will continue with routine care and plan for discharge home tomorrow as long as everything is going well. Attestations Medical Necessity Statement*: The patient will be here for greater then 2 midnights due to routine intrapartum and management of labor and delivery. Coding Level of Care Code Acute Aircraft Maintenance Supervisor for Aleah Garcia Diagnoses Spontaneous vaginal delivery O80
--- NOTE | 2021-08-04 08:41 | ANE.PACU2 ---
Inpatient post-anesthesia follow up: Airway intact: Yes Vital signs: Temperature 98.0 F Pulse Rate 85 Respiratory Rate 15 Blood Pressure 113/71 Pulse Oximetry 95 Oxygen Delivery Me thod Room Air Oxygen Flow Rate Fraction of Inspir ed Oxygen Hydration adequate: Yes Nausea and vomiting: No Pain level: 2 Mental status: Baseline
[2021-08-04] MEDS: prenatal vitamin Capsule 1 CAP PO (10:10)
[2021-08-04] MEDS: docusate sodium 100 mg Capsule PO ×2 (10:10→16:48)
[2021-08-04] MEDS: ibuprofen 800 mg tablet PO ×3 (10:10→20:19)
[2021-08-04 10:23] LABS: Hematocrit 36.1 % (37.0-47.0); Mean Corpuscular HGB Conc 33.2 g/dL (30.0-36.0); Mean Corpuscular Hemoglobin 28.2 pg (28.0-34.0); Mean Corpuscular Volume 84.7 fl (81-99); Mean Platelet Volume 9.9 fL (7.4-10.4); Platelet Count 215 10^3/cmm (130-400); Red Blood Count 4.26 10^6/uL (4.1-5.3); Red Cell Distribution Width 15.5 % (12.1-15.1); White Blood Count 16.4 10^3/uL (4.0-10.0)
[2021-08-04 16:45] VITALS: BP 120/80; PULSE 91; RESP 17; TEMP 36.7; O2SAT 98
[2021-08-04 21:30] VITALS: BP 126/81; PULSE 89; RESP 16; TEMP 36.8; O2SAT 98
[2021-08-05 04:27] VITALS: BP 118/77; PULSE 80; RESP 16; TEMP 36.7; O2SAT 96
--- NOTE | 2021-08-05 08:02 | PM.DCS ---
Discharge Providers Date of Admission: 08/03/21 08:10 Date of Discharge: August 05, 2021 Attending Provider at Admission: Junior Rutledge MD Attending Provider at Discharge: Junior Rutledge MD Primary Care Provider: Junior Rutledge MD Diagnoses at Discharge Discharge Diagnosis (1) Spontaneous vaginal delivery: Status: Acute Other Information Additional DC diagnoses/information: 1.? Intrauterine status post spontaneous vaginal delivery at 39.0 weeks gestation 2.? Chronic hypertension 3.? Smoker 4.? Anxiety 5.? Obesity 6.? Possible triplet with only 1 viable fetus 7.? COVID-19 infection on 04/01/2021 8.? Delivery of healthy infant male weighing 8 pounds 9 ounces with Apgars of 9 and 9? Reason for Visit Reason for Visit: contractions Brief History: Luz Marina Skaggs is a 31 year old G4 now P2 status post spontaneous vaginal delivery at 39.0 weeks gestation by LMP consistent with 7-week ultrasound.? Her was complicated by chronic hypertension, smoker, anxiety, obesity, possible triplet with only 1 viable fetus, COVID-19 infection on 04/01/2021. The patient presented to labor and delivery triage due to contractions that started at approximately 4 AM.? She had a feeling of loss of fluid around the same time.? For this reason she came to labor and delivery for further evaluation.? She was found to be 6 to 7 cm dilated and nitrazine was positive.? For this reason she was kept for spontaneous labor with spontaneous rupture of membranes. Hospital Course Hospital Course The patient made slow change from there and was gilbert regularly every 3 to 4 minutes.? The patient requested not to have an epidural and so Pitocin was not added initially.? With continued checks it was felt that the infant was in the OP position.? Multiple position changes were done to try and get the to flip into the OA position, however were unsuccessful.? There was a fore bag present and this was ruptured to allow further descent.? Without further change, the patient consented to an epidural to see if this would allow her to relax and the to change position.? The epidural was placed in the late afternoon and the patient was comfortable with it.? Shortly afterwards she began to make change to 8 cm and finally to complete at 1840 on08/03/2021. The patient had an uncomplicated vaginal delivery. she has done well and is having no signs of complications. Her bleeding is decreasing well. Her pain is well controlled. She is ambulating, voiding, passing gas and tolerating food by mouth. We will plan for discharge home today and follow-up at 6 weeks or sooner if needed. All questions were answered. The patient is in agreement with current plan of care. Physical Exam Narrative: General: Alert and oriented x3 Cardiac: Regular rate and rhythm without murmurs Lungs: Clear to auscultation bilaterally without wheezes, crackles or rhonchi Abdomen: Soft, mild tenderness over uterus. The uterus is firm and 2 cm below the umbilicus. Extremities: Trace edema in the bilateral lower extremities Discharge Data Studies Completed and Pending Laboratory Results WBC 16.4 10^3/uL (4.0-10.0) H 08/04/21 10:05 RBC 4.26 10^6/uL (4.1-5.3) 08/04/21 10:05 Hgb 12.0 g/dL (11.5-15.3) 08/04/21 10:05 Hct 36.1 % (37.0-47.0) L 08/04/21 10:05 MCV 84.7 fl (81-99) 08/04/21 10:05 MCH 28.2 pg (28.0-34.0) 08/04/21 10:05 MCHC 33.2 g/dL (30.0-36.0) 08/04/21 10:05 RDW 15.5 % (12.1-15.1) H 08/04/21 10:05 Plt Count 215 10^3/cmm (130-400) 08/04/21 10:05 MPV 9.9 fL (7.4-10.4) 08/04/21 10:05 Neut % (Auto) 78.6 % 08/03/21 09:23 Lymph % (Auto) 12.0 % 08/03/21 09:23 [place] % (Auto) 7.4 % 08/03/21 09:23 Eos % (Auto) 0.6 % 08/03/21 09:23 Baso % (Auto) 0.2 % 08/03/21 09:23 Neut # (Auto) 9.62 10^3/uL (1.8-7.7) H 08/03/21 09:23 Lymph # (Auto) 1.5 10^3/uL (0.8-4.8) 08/03/21 09:23 [place] # (Auto) 0.9 10^3/uL (0.2-0.9) 08/03/21 09:23 Eos # (Auto) 0.1 10^3/uL (0.0-0.8) 08/03/21 09:23 Baso # (Auto) 0.0 10^3/uL (0.0-0.1) 08/03/21 09:23 Nucleated RBC % (auto) 0 % 08/03/21 09:23 Nucleated RBCs # 0.0 /100WBC 08/03/21 09:23 Vitals Last Vital Signs Temp 98.0 F 08/05/21 04:27 Pulse 80 08/05/21 04:27 Resp 16 08/05/21 04:27 BP 118/77 08/05/21 04:27 Pulse Ox 96 08/05/21 04:27 Discharge Plan Discharge Patient Disposition: Home Condition: Good Prescriptions: New ibuprofen 800 mg Tablet 800 mg PO TID Qty: 30 0RF Continued prenat.vits,jo ann,[id number] Tablet 1 tab PO DAILY 0RF cetirizine [Zyrtec] 10 mg tablet 10 mg PO DAILY 0RF Discontinued Afrin (oxymetazoline) 0.05 % mist 2 spray intranasal Q12H PRN0RF Children's Multi-Vit Gummies 200 mcg tablet,chewable PO 0RF oseltamivir [Tamiflu] 75 mg capsule 75 mg PO BID 5 Days Qty: 10 0RF Discharge Orders: Discharge Order (Routine); Ordered 08/05/21 Ordered By: Junior Rutledge Referrals: Junior Rutledge MD [Primary Care Provider] - 6 Weeks Discharge Diet: Regular Discharge Activity: Increase activity as tolerated Patient Instructions: Depression (DC), Bleeding (DC), Preeclampsia and Eclampsia After Delivery (GEN), OB Discharge Report, OB Food/Drug Interaction Guide, OB Care at Home, Opioid Safety, OB [facility] - [facility], OB Vaginal Deliveries, Abnormal Bleeding Activity Restrictions/Additional Instructions: Nothing per vagina for 6 weeks. Discharge Attestations Time Spent in Discharge Care*: greater than 30 min Quality Metrics Clinical Quality Measures [ No reported AMI, CVA or VTE this stay] Coding Level of Care Code Acute Chg FW DC note Diagnoses Spontaneous vaginal delivery O80
[2021-08-05] MEDS: docusate sodium 100 mg Capsule PO (08:45)
[2021-08-05] MEDS: ibuprofen 800 mg tablet PO (08:45)
[2021-08-05] MEDS: prenatal vitamin Capsule 1 CAP PO (08:45)
[2021-08-05 08:48] VITALS: BP 152/89; PULSE 97; RESP 16; TEMP 36.8
[2021-08-05 09:53] VITALS: BP 152/89; PULSE 97; RESP 16; TEMP 36.8
== END 2021-08-05 09:50 | disposition home or self-care (01) | DRG 807 ==
LOC: OPOB 08:16 → OBGYN 08:17
PROVIDERS: Admitting Provider Family Medicine; PCP Family Medicine; Visit Provider Family Medicine
DX: O10.02 Pre-existing essential hypertension complicating childbirth (principal); Z37.0 Single live birth; O99.334 Smoking (tobacco) complicating childbirth; F17.210 Nicotine dependence, cigarettes, uncomplicated; O99.344 Other mental disorders complicating childbirth; F41.1 Generalized anxiety disorder; O99.214 Obesity complicating childbirth; O70.1 Second degree perineal laceration during delivery; Z3A.39 39 weeks gestation of pregnancy; Z86.16 Personal history of COVID-19
CPT/HCPCS: 36415; 51702; 59025; 59409; 83986; 85025; 85027; 99211; J2795

== ENCOUNTER 2021-08-18 19:26 | Emergency (ER) | payer OTHER, MEDICAID, SELFPAY ==
[2021-08-18] VITALS (9 sets, daily range): BP systolic 119–155; BP diastolic 65–93; PULSE 76–97; RESP 16–18; TEMP 36.6; O2SAT 92–97
--- NOTE | 2021-08-18 19:36 | USR_ITS ---
PROCEDURE INFORMATION: Exam: US Pelvis, Transvaginal Exam date and time: 08/18/2021 9:33 PM Age: 31 years old Clinical indication: Menstruation abnormalities; Excessive menstruation; Other: Post ; Additional info: Post vag bleeding TECHNIQUE: Imaging protocol: Real-time transvaginal pelvic ultrasound with image documentation. Transvaginal imaging was used for better evaluation of the endometrium, adnexa, and/or cervix. COMPARISON: US OB <=14 wk fetus w transvag 01/14/2021 4:05 PM FINDINGS: Uterus: Uterus measures 12.7 cm longitudinal x 6.3 cm AP x 10.0 cm transverse. Uterine size is consistent with the patient's status. Myometrium is heterogeneous in echotexture, but no focal uterine lesion is demonstrated. The endometrium measures 14 mm in AP thickness. There is nonspecific fluid in the endometrial canal. Right ovary/adnexa: Right ovary is not identified. No right adnexal mass noted. Incidental note made of a shadowing bowel loop in the right adnexal area. Left ovary/adnexa: The left ovary is not identified. No left adnexal mass identified. Intraperitoneal space: No free fluid. US/US transvaginal [id number] IMPRESSION: 1. There is nonspecific fluid in the endometrial canal, presumably related to the patient's bleeding. No thickening of the lining of the endometrial canal noted. 2. No adnexal abnormality demonstrated. The ovaries are not identified, and are likely laterally displaced by the enlarged uterus.
--- NOTE | 2021-08-18 19:39 | W.ED.GENADLT ---
HPI - General Adult General: Chief complaint: Vaginal Bleeding Stated complaint: heavy vaginal bleeding Time Seen by Provider: 08/18/21 19:35 History of Present Illness: Patient is a 31-year-old female G4, P2 with recent delivery 2 weeks ago presents the emergency room for evaluation post vaginal bleeding. Patient tells me that she delivered on 08/03/2021 to 39 weeks baby without any complication. Patient reported mild postpum laceration from vaginal delivery that was repaired with suture. Since then, patient has mild intermittent bleeding. For the last 3 days, patient has not had any bleeding up until earlier today at 6 PM at which point patient noted passage of clots and blood for 10 minutes straight. Patient came concerned and came to the emergency room. Patient denies any pelvic cramps, new vaginal discharge or urinary symptoms. Patient denies any nausea vomiting/fever chills, or other focal complaints at this time. Onset:1 hr ago Duration:intermittent ongoing Location:home Severity:moderate Associated symptoms: Deny chest pain, dyspnea, nausea, rash, palpitations or vomiting Review of Systems Const: Denies: fever(s) or chills Eyes: Denies: change in vision ENMT: Denies: mouth pain Card: Denies: chest pain or palpitations Resp: Denies: dyspnea or non-productive cough GI: Denies: abdominal pain, nausea, vomiting or diarrhea : Reports: other (+vaginal bleeding); Denies: dysuria Musc: Denies: extremity pain Skin/Breast: Denies: rash or new lesions Neuro: Denies: weakness in extremities Psych: Reports: other (Normal mood) Reginald/Lymph: Denies: easy bruising PFS ED PFSH: Medical History ROSEANNE (generalized anxiety disorder) Hypertension No pertinent past medical history neghx: htn,dm,thyroid,dvt/pe Surgical History Hx of wisdom tooth extraction (~2004) Family History Grandmother Diabetes Maternal Heart disease Maternal Hypercholesteremia Maternal Hypertension Materanl Denies family history of Colon cancer Ovarian cancer Breast cancer Uterine cancer Thyroid disease Stroke Social History Smoking and tobacco status: current every day smoker Alcohol intake: former Female Reproductive History: Date of last menstrual period: 01/02/20 Spontaneous abortions: No Physical Exam Const: COMMON NORMALS: alert HENMT: COMMON NORMALS: atraumatic HEAD & SCALP: atraumatic MOUTH: moist mucous membranes not abnormal Eye: COMMON NORMALS: EOMs intact bilaterally and conjunctivae normal CONJUNCTIVA: Yes conjunctivae normal Neck/C-Spine: COMMON NORMALS: full ROM and supple Resp: COMMON NORMALS: normal respiratory effort and clear to auscultation bilaterally AUSCULTATION: clear to auscultation bilaterally Cardio: COMMON NORMALS: regular rate RATE: regular rate GI: COMMON NORMALS: Soft to palpation and non-tender PALPATION: Yes Soft to palpation Back/Pelvis: OTHER: pelvic exam supervised by Hedy VENCES: Mild streak blood in the vaginal vault, no active signs of extravasation or bleeding Extremity: COMMON NORMALS: full ROM Neuro: SENSORIUM/ORIENTATION: Yes alert MOTOR EXAM: No Abnormal motor strength present and Other motor observations present (no focal motor deficits) Psych: COMMON NORMALS: speech normal SPEECH: Yes normal speech MOOD & AFFECT: Yes euthymic mood Course Vital Signs: Vital signs: Vital Signs Temperature 97.8 F 08/18/21 19:29 Pulse Rate 79 08/18/21 23:20 Respiratory Rate 18 08/18/21 23:20 Blood Pressure 126/83 08/18/21 23:20 Pulse Oximetry 93 08/18/21 23:20 MDM - General Adult Medical Decision Making 31-year-old female G4, P2 delivered on 08/03/2021 presenting to the emergency new onset of vaginal bleeding x1 hour ago. Patient appears to be hemodynamically stable. Pelvic exam showed mil blood in the vaginal vault without active bleeding. H&H appears to be stable. Pelvic exam not showing signs of active vaginal bleeding. H&H appears to be stable. Transvaginal from did not show any focal findings. Patient struck to follow-up with Dr. Edd Rutledge in 1 week for repeat blood work. Disposition: Discharge. Patient counseled regarding diagnostic impression, treatment plan. Patient given ED strict return precautions to return for continuation, worsening, or development of new symptoms. Instructed to f/u w/ PCP regarding symptoms today. Patient verbalized understanding. He is given strict return precaution for any signs of heavy vaginal bleeding or any new Complaint Lab Data : 08/18/21 20:00 08/18/21 20:00 Radiology Impressions Transvaginal US 08/18/21 19:36 IMPRESSION: 1. There is nonspecific fluid in the endometrial canal, presumably related to the patient's bleeding. No thickening of the lining of the endometrial canal noted. 2. No adnexal abnormality demonstrated. The ovaries are not identified, and are likely laterally displaced by the enlarged uterus. Laboratory Results WBC 7.3 10^3/uL (4.0-10.0) 08/18/21 20:00 RBC 5.70 10^6/uL (4.1-5.3) H 08/18/21 20:00 Hgb 15.5 g/dL (11.5-15.3) H 08/18/21 20:00 Hct 47.2 % (37.0-47.0) H 08/18/21 20:00 MCV 82.8 fl (81-99) 08/18/21 20:00 MCH 27.2 pg (28.0-34.0) L 08/18/21 20:00 MCHC 32.8 g/dL (30.0-36.0) 08/18/21 20:00 RDW 13.5 % (12.1-15.1) 08/18/21 20:00 Plt Count 228 10^3/cmm (130-400) 08/18/21 20:00 MPV 9.6 fL (7.4-10.4) 08/18/21 20:00 Neut % (Auto) 65.2 % 08/18/21 20:00 Lymph % (Auto) 26.1 % 08/18/21 20:00 Lipscomb % (Auto) 6.8 % 08/18/21 20:00 Eos % (Auto) 1.4 % 08/18/21 20:00 Baso % (Auto) 0.1 % 08/18/21 20:00 Neut # (Auto) 4.76 10^3/uL (1.8-7.7) 08/18/21 20:00 Lymph # (Auto) 1.9 10^3/uL (0.8-4.8) 08/18/21 20:00 Lipscomb # (Auto) 0.5 10^3/uL (0.2-0.9) 08/18/21 20:00 Eos # (Auto) 0.1 10^3/uL (0.0-0.8) 08/18/21 20:00 Baso # (Auto) 0.0 10^3/uL (0.0-0.1) 08/18/21 20:00 Nucleated RBC % (auto) 0 % 08/18/21 20:00 Nucleated RBCs # 0.0 /100WBC 08/18/21 20:00 PT 13.00 SECONDS (12.1-14.9) 08/18/21 20:00 INR 0.95 (0.8-1.2) 08/18/21 20:00 APTT 27.1 SECONDS (23.9-36.7) 08/18/21 20:00 Sodium 137 mmol/L (136-145) 08/18/21 20:00 Potassium 3.4 mmol/L (3.5-5.1) L 08/18/21 20:00 Chloride 101 mmol/L (98-107) 08/18/21 20:00 Carbon Dioxide 23 mmol/L (22-29) 08/18/21 20:00 Anion Gap 16.4 (5-19) 08/18/21 20:00 BUN 11 mg/dL (6-20) 08/18/21 20:00 Creatinine 0.9 mg/dL (0.5-0.9) 08/18/21 20:00 GFR Calculation 72.1 mL/min (90-130) L 08/18/21 20:00 Glucose 95 mg/dL (65-115) 08/18/21 20:00 Calculated Osmolality 283 mOsm/kg (285-295) L 08/18/21 20:00 Calcium 9.4 mg/dL (8.5-10.5) 08/18/21 20:00 Imaging Data Other Imaging: Radiologist's impression: [facility] [address] [place] [address] Ultrasound Report Signed Patient: Luz Marina Skaggs Unit #: [id number] : 1990 Age/Sex: 31 / F ADM Date: 08/18/21 Loc: ER Room/Bed: Attending Dr: Ordering Provider/Ordering MD: Mercedes Martinez MD Date of Service: 08/18/21 Procedure(s): US transvaginal [id number] Accession Number(s): [id number] Report Number: [id number] PROCEDURE INFORMATION: Exam: US Pelvis, Transvaginal Exam date and time: 08/18/2021 9:33 PM Age: 31 years old Clinical indication: Menstruation abnormalities; Excessive menstruation; Other: Post ; Additional info: Post vag bleeding TECHNIQUE: Imaging protocol: Real-time transvaginal pelvic ultrasound with image documentation. Transvaginal imaging was used for better evaluation of the endometrium, adnexa, and/or cervix. COMPARISON: US OB <=14 wk fetus w transvag 01/14/2021 4:05 PM FINDINGS: Uterus: Uterus measures 12.7 cm longitudinal x 6.3 cm AP x 10.0 cm transverse. Uterine size is consistent with the patient's status. Myometrium is heterogeneous in echotexture, but no focal uterine lesion is demonstrated. The endometrium measures 14 mm in AP thickness. There is nonspecific fluid in the endometrial canal. Right ovary/adnexa: Right ovary is not identified. No right adnexal mass noted. Incidental note made of a shadowing bowel loop in the right adnexal area. Left ovary/adnexa: The left ovary is not identified. No left adnexal mass identified. Intraperitoneal space: No free fluid. US/US transvaginal [id number] IMPRESSION: 1. There is nonspecific fluid in the endometrial canal, presumably related to the patient's bleeding. No thickening of the lining of the endometrial canal noted. 2. No adnexal abnormality demonstrated. The ovaries are not identified, and are likely laterally displaced by the enlarged uterus. ? Dictated By: Manoj Manzo MD Signed By: Manoj Manzo MD Signed Date/Time: 08/18/212255 DD/ 32 Discharge Plan Discharge Patient Disposition: Home Clinical Impression: Vaginal bleeding Condition: Stable Prescriptions: No Action prenat.vits,jo ann,[id number] Tablet 1 tab PO DAILY 0RF cetirizine [Zyrtec] 10 mg tablet 10 mg PO DAILY 0RF ibuprofen 800 mg Tablet 800 mg PO TID Qty: 30 0RF Discharge Orders: Discharge ED (Routine); Ordered 08/18/21 Ordered By: Mercedes Martinez Referrals: Junior Rutledge MD [Primary Care Provider] - Discharge Diet: Advance as tolerated Discharge Activity: Increase activity as tolerated Patient Instructions: Bleeding (ED) Activity Restrictions/Additional Instructions: Please follow up iwth Dr. Rutledge. Come back if you have any new or concerning complaints including significant bleeding. Coding Level of Care Code ED Talent Development Consultant for Chg Fwd Exam Comprehensive
[2021-08-18 20:19] LABS: Basophils % 0.1 %; Eosinophils # 0.1 10^3/uL (0.0-0.8); Eosinophils % 1.4 %; Hematocrit 47.2 % (37.0-47.0); Hemoglobin 15.5 g/dL (11.5-15.3); Lymphocytes # 1.9 10^3/uL (0.8-4.8); Lymphocytes % 26.1 %; Mean Corpuscular HGB Conc 32.8 g/dL (30.0-36.0); Mean Corpuscular Hemoglobin 27.2 pg (28.0-34.0); Mean Corpuscular Volume 82.8 fl (81-99); Mean Platelet Volume 9.6 fL (7.4-10.4); Monocytes # 0.5 10^3/uL (0.2-0.9); Monocytes % 6.8 %; Neutrophils # 4.76 10^3/uL (1.8-7.7); Neutrophils % 65.2 %; Nucleated Red Blood Cells % 0 %; Platelet Count 228 10^3/cmm (130-400); Red Cell Distribution Width 13.5 % (12.1-15.1); White Blood Count 7.3 10^3/uL (4.0-10.0)
[2021-08-18 20:37] LABS: INR 0.95 (0.8-1.2)
[2021-08-18 20:38] LABS: Partial Thromboplastin Time 27.1 SECONDS (23.9-36.7)
[2021-08-18 20:41] LABS: Anion Gap 16.4 (5-19); Blood Urea Nitrogen 11 mg/dL (6-20); Calcium 9.4 mg/dL (8.5-10.5); Carbon Dioxide 23 mmol/L (22-29); Chloride 101 mmol/L (98-107); Glomerular Filtration Rate 72.1 mL/min (90-130); Glucose 95 mg/dL (65-115); Osmolality Calculated 283 mOsm/kg (285-295); Potassium 3.4 mmol/L (3.5-5.1); Sodium 137 mmol/L (136-145)
== END 2021-08-18 23:20 | disposition home or self-care (01) ==
PROVIDERS: Emergency Provider Emergency Medicine; PCP Family Medicine
DX: N93.9 Abnormal uterine and vaginal bleeding, unspecified (principal)
CPT/HCPCS: 76830; 80048; 85025; 85610; 85730; 99283; E0352

== ENCOUNTER → 2021-09-18 10:49 | Outpatient (BNVA) | payer OTHER, MEDICAID, SELFPAY | PROVIDERS: PCP Family Medicine; Visit Provider Obstetrics & Gynecology | DX: Z30.9 Encounter for contraceptive management, unspecified (principal) | CPT/HCPCS: 81025 ==

== ENCOUNTER → 2021-11-17 10:11 | Outpatient (BNVA) | payer OTHER, MEDICAID, SELFPAY | PROVIDERS: PCP Family Medicine; Visit Provider Family Medicine | DX: Z01.419 Encounter for gynecological examination (general) (routine) without abnormal findings (principal); R87.612 Low grade squamous intraepithelial lesion on cytologic smear of cervix (LGSIL) | CPT/HCPCS: 87624 ==

== ENCOUNTER 2022-01-01 09:02 | Emergency (ER) | payer MEDICAID, SELFPAY ==
[2022-01-01 09:16] VITALS: BP 149/92; PULSE 92; RESP 18; TEMP 36.7; O2SAT 100; BMI 34.2
--- NOTE | 2022-01-01 09:27 | W.ED.BACK ---
HPI - Back Pain/Injury General: Chief Complaint: Back Pain/Injury Stated Complaint: backpain Time Seen by Provider: 01/01/22 09:23 Source: patient Mode of arrival: ambulatory Limitations: no limitations History of Present Illness: 31-year-old female presents to the ER today for worsening back pain for the last 4 hours. Patient reports over the last couple weeks she noticed her low back had some mild pain. Patient reports she woke up this morning went to the bathroom and when she went to walk across to the bed she collapsed to the floor due to pain. Patient reports the pain has improved slightly at this time. She denies any radiating pain. Patient reports that his midline low back. Patient denies any loss of bowel or bladder control. Patient denies any history of back issues. Patient reports she has been doing yoga which seems to help the discomfort over the last week or so. Review of Systems General: Reports: 10 or more systems reviewed and unremarkable except in HPI and below PFSH ED PFSH: Medical History ROSEANNE (generalized anxiety disorder) Hypertension No pertinent past medical history neghx: htn,dm,thyroid,dvt/pe Surgical History Hx of wisdom tooth extraction (~2004) Family History Grandmother Diabetes Maternal Heart disease Maternal Hypercholesteremia Maternal Hypertension Materanl Denies family history of Colon cancer Ovarian cancer Breast cancer Uterine cancer Thyroid disease Stroke Social History Smoking and tobacco status: current every day smoker Alcohol intake: former Female Reproductive History: Date of last menstrual period: 01/02/20 Spontaneous abortions: No Physical Exam Const: COMMON NORMALS: no acute distress, average body habitus, patient oriented x3, no limitations, healthy appearing, alert and well nourished Neck/C-Spine: COMMON NORMALS: full ROM and no lymphadenopathy Resp: COMMON NORMALS: normal respiratory effort EFFORT & INSPECTION: Yes able to speak in complete sentences Cardio: COMMON NORMALS: regular rate and regular rhythm RATE: regular rate RHYTHM: regular rhythm Back/Pelvis: OTHER: Patient has no tenderness to palpation. Even along the midline of the low back there is no tenderness. No obvious muscle spasms noted. No SI joint tenderness. Extremity: COMMON NORMALS: normal to inspection and full ROM Neuro: COMMON NORMALS: patient oriented x3 SENSORIUM/ORIENTATION: Yes alert Psych: COMMON NORMALS: mental status grossly normal, Normal thought process present and cooperative THOUGHT PROCESS: Normal thought process present Skin: COMMON NORMALS: no rashes or lesions noted and no wounds GENERAL SKIN EXAM: no rashes or lesions noted Course ED course: 31-year-old female presents to the ER for acute low back pain. This is been going on for a week or so very mildly however worsened early this morning. Patient reports that is already started improving some. She denies any neurological deficits. Denies any loss of bowel or bladder control. Patient reports she is uncomfortable sitting and walking down a incline. She reports otherwise she can handle the pain and is comfortable. She has never had any imaging done. Patient is taking naproxen at home which usually does help. No imaging recommended at this time. We can likely do medication to help with patient's pain. Vital Signs: Vital signs: Vital Signs Temperature 98.1 F 01/01/22 09:16 Pulse Rate 92 01/01/22 09:16 Respiratory Rate 18 01/01/22 09:16 Blood Pressure 149/92 01/01/22 09:16 Pulse Oximetry 100 01/01/22 09:16 Oxygen Delivery Me thod 01/01/22 09:16 MDM - Back Pain/Injury Medical Decision Making Imaging not necessary at this time as patient has had no acute injury. We will treat conservatively with Medrol Dosepak and muscle relaxer. Patient should continue anti-inflammatory at home. If pain does not improve I would recommend follow-up with PCP to discuss imaging of the low back. Warm, moist heat recommended. Rest recommended. Stretching recommended. Topical muscle rub recommended. Return to the ER with any new or worsening symptoms including neurological deficits. Critical Care Time Critical Care Time: Critical Care Time: No Discharge Plan Discharge Patient Disposition: Home Clinical Impression: Acute low back pain Qualifiers: Back pain laterality: midline Sciatica presence: without sciatica Qualified Code(s): M54.50 - Low back pain, unspecified Condition: Stable Prescriptions: New methocarbamol 750 mg tablet 750 mg PO Q8H Qty: 21 0RF Medrol (Khoi) 4 mg tablets,dose pack See Rx Instructions .ROUTE .COMPLEX Qty: 21 0RF Rx Instructions: orally per package directions No Action prenat.vits,jo ann,[id number] Tablet 1 tab PO DAILY cetirizine [Zyrtec] 10 mg tablet 10 mg PO DAILY ParaGard T 380A 380 square mm intrauterine device intrauterine ibuprofen 800 mg Tablet 800 mg PO TID Qty: 30 0RF Discharge Orders: Discharge ED (Routine); Ordered 01/01/22 Ordered By: Nelly Thompson Referrals: Junior Rutledge MD [Primary Care Provider] - Discharge Diet: Usual diet Discharge Activity: Increase activity as tolerated Patient Instructions: Opioid Safety, Pain Management Activity Restrictions/Additional Instructions: Take Medrol Dosepak and Robaxin as prescribed. Warm, moist heat recommended. Topical muscle rub recommended but do not use it with the heat. Follow-up with PCP in 7 to 10 days if no improvement. Return to the ER with any new or worsening symptoms including any neurological symptoms. Coding Level of Care Code ED Needle Punch Machine Operator for Aleah Garcia
== END 2022-01-01 10:05 | disposition home or self-care (01) ==
PROVIDERS: Emergency Provider Physician Assistant; PCP Family Medicine
DX: M54.50 Low back pain, unspecified (principal); I10 Essential (primary) hypertension; F17.210 Nicotine dependence, cigarettes, uncomplicated
CPT/HCPCS: 99283

== ENCOUNTER → 2025-01-20 13:31 | Outpatient (BNVA) | payer OTHER, SELFPAY | PROVIDERS: PCP Family Medicine; Visit Provider Emergency Medicine | DX: J06.9 Acute upper respiratory infection, unspecified (principal); J02.0 Streptococcal pharyngitis | CPT/HCPCS: 87426; 87880 ==